=== PATIENT | male | born 1990 | race Caucasian/White ===

== ENCOUNTER → 2016-07-22 | Outpatient (CLI) | payer MEDICAID ==
--- NOTE | 2016-07-22 12:18 | REP ---
MRI lumbar spine without contrast: History: Low back pain. Left-sided sciatica. Comparison radiographs May 16, 2016. Technique: Sagittal and axial T1 and T2-weighted scans are acquired in the usual fashion with and without fat saturation. Sequences include spin echo, turbo spin-echo, and STIR imaging sequences. MRI findings: Cortical and medullary bone signal intensity are normal. There is slight straightening of the normal lumbar lordosis. Vertebral body heights are preserved. There is decreased disc space height and signal intensity at the L5- S1 disc level consistent with some early degenerative disc disease at this level. Otherwise, disc spaces are preserved in height and signal intensity. Axial and sagittal images at L5-S1 demonstrate a left posterior disc protrusion at L5-S1 effacing the ventral margin of the thecal sac and compressing the exiting S1 root sleeve. There is minimal facet hypertrophy at L5-S1. No other disc herniation is seen. No central canal stenosis is noted. Conus medullaris is normal in position and appearance at L1. No extra vertebral abnormality is seen. Impression: Left posterior small disc herniation compressing the exiting S1 root. Mild bilateral L5-S1 facet hypertrophy. Early degenerative disc changes at L5-S1. Signed by Daniel Rivera MD 07/22/2016 02:06 P
== END ==
LOC: M RAD 10:14
PROVIDERS: ATTEND Family Medicine
DX: M54.42 Lumbago with sciatica, left side (principal); M51.36 Other intervertebral disc degeneration, lumbar region

== ENCOUNTER → 2017-01-30 | Outpatient (REF) | payer MEDICAID ==
[2017-01-30 16:49] LABS: ALBUMIN 4.3 GM/DL (3.2-5.2); ALBUMIN/GLOBULIN RATIO 1.72 (1.00-1.93); ALKALINE PHOSPHATASE 79 U/L (45-117); ALT/SGPT 39 U/L (12-78); ANION GAP 6 MEQ/L (8-16); AST/SGOT 17 U/L (15-37); BILIRUBIN,TOTAL 1.4 MG/DL (0.2-1.0); BLOOD UREA NITROGEN 13 MG/DL (7-18); CALCIUM LEVEL 8.8 MG/DL (8.5-10.1); CARBON DIOXIDE LEVEL 30 MEQ/L (21-32); CHLORIDE LEVEL 105 MEQ/L (98-107); CHOLESTEROL LEVEL 131 MG/DL (<200); CREATININE FOR GFR 0.78 MG/DL (0.70-1.30); FREE T4 1.26 NG/DL (0.76-1.46); GLOMERULAR FILTRATION RATE > 60.0 (>60); GLUCOSE, FASTING 87 MG/DL (70-105); SODIUM LEVEL 141 MEQ/L (136-145); TOTAL PROTEIN 6.8 GM/DL (6.4-8.2); TRIGLYCERIDES LEVEL 90 MG/DL (<150)
[2017-02-02 00:07] LABS: Lyme Disease IgG/IgM Antibodie <0.91 ISR (0.00-0.90); Lyme Disease IgM Ab Quantitati <0.80 index (0.00-0.79)
== END ==
LOC: M SFHCLERA 12:15
PROVIDERS: ATTEND Family Medicine
DX: R10.84 Generalized abdominal pain (principal); Z13.220 Encounter for screening for lipoid disorders

== ENCOUNTER → 2017-02-08 | Outpatient (REF) | payer MEDICAID ==
[2017-02-08 12:42] LABS: MEAN CORPUSCULAR HEMOGLOBIN 32.1 pg (27.0-33.0); MEAN CORPUSCULAR HGB CONC 33.9 g/dl (32.0-36.5); MEAN CORPUSCULAR VOLUME 94.5 fl (80.0-96.0); RED CELL DISTRIBUTION WIDTH 12.3 % (11.5-14.5); WHITE BLOOD COUNT 5.1 K/mm3 (4.0-10.0)
[2017-02-08 12:58] LABS: ALBUMIN 4.4 GM/DL (3.2-5.2); ALBUMIN/GLOBULIN RATIO 1.76 (1.00-1.93); BILIRUBIN,DIRECT 0.3 MG/DL (0.0-0.2); TOTAL PROTEIN 6.9 GM/DL (6.4-8.2)
== END ==
LOC: M SFHCLERA 10:23
PROVIDERS: ATTEND Family Medicine
DX: R17 Unspecified jaundice (principal)

== ENCOUNTER → 2018-05-17 | Outpatient (REF) | payer OTHER | LOC: M SFHCLERA 16:24 | DX: J40 Bronchitis, not specified as acute or chronic (principal) ==

== ENCOUNTER → 2019-04-02 | Outpatient (CLI) | payer BC, MEDICAID ==
--- NOTE | 2019-04-03 02:32 | REP ---
Clinical: Pain centered at the first metacarpophalangeal joint Technique: AP, lateral, bilateral oblique views left hand . Findings: No significant degenerative changes are appreciated. No acute fracture or dislocation. No subcutaneous emphysema or radiodense foreign body. Impression: Essentially normal, age-appropriate left hand radiographs. Electronically Signed by Juan Luis Dalal MD 04/03/2019 02:23 A
== END ==
LOC: M LRY 10:33
PROVIDERS: ATTEND Family Medicine
DX: S63.642A Sprain of metacarpophalangeal joint of left thumb, initial encounter (principal); X58.XXXA Exposure to other specified factors, initial encounter; Y92.89 Other specified places as the place of occurrence of the external cause

== ENCOUNTER → 2019-07-07 | Outpatient (REF) | payer BC, MEDICAID | LOC: M SFHCLERA 14:26 | PROVIDERS: ATTEND Family Medicine | DX: J02.9 Acute pharyngitis, unspecified (principal) ==

== ENCOUNTER → 2019-09-25 | Outpatient (REF) | payer BC, MEDICAID | LOC: M SFHCLERA 14:01 | PROVIDERS: ATTEND Nurse Practitioner Family | DX: R53.81 Other malaise (principal) ==

== ENCOUNTER → 2020-06-23 | Outpatient (CLI) | payer SELFPAY | LOC: M LABSMTC 13:50 | PROVIDERS: ATTEND Pediatrics | DX: Z11.59 Encounter for screening for other viral diseases (principal) ==

== ENCOUNTER → 2020-08-12 | Outpatient (CLI) | payer BC | LOC: M LABSMTC 13:41 | PROVIDERS: ATTEND Family Medicine | DX: Z20.822 Contact with and (suspected) exposure to COVID-19 (principal) | CPT/HCPCS: C9803; U0003 ==

== ENCOUNTER → 2020-08-13 | Outpatient (CLI) | payer BC ==
[2020-08-13 15:56] LABS: BASO # 0.1 10^3/uL (0.0-0.2); BASO % 1.3 % (0.0-1.0); EOS # 0.1 10^3/uL (0.0-0.5); EOS % 2.5 % (0.0-3.0); HEMATOCRIT 52.6 % (42.0-52.0); HEMOGLOBIN 17.2 g/dl (13.5-17.5); LYMPH # 1.9 10^3/uL (1.5-5.0); LYMPH % 33.7 % (24.0-44.0); MEAN CORPUSCULAR HEMOGLOBIN 30.9 pg (27.0-33.0); MEAN CORPUSCULAR HGB CONC 32.7 g/dl (32.0-36.5); MEAN CORPUSCULAR VOLUME 94.4 fl (80.0-96.0); MONO # 0.5 10^3/uL (0.0-0.8); MONO % 8.5 % (0.0-5.0); NEUTROPHILS % 53.6 % (36.0-66.0); PLATELET COUNT, AUTOMATED 197 10^3/uL (150-450); RED BLOOD COUNT 5.57 10^6/uL (4.30-6.10); WHITE BLOOD COUNT 5.5 10^3/uL (4.0-10.0)
[2020-08-13 16:17] LABS: ALBUMIN 4.3 GM/DL (3.2-5.2); ALT/SGPT 27 U/L (12-78); BILIRUBIN,TOTAL 0.9 MG/DL (0.2-1.0); BLOOD UREA NITROGEN 12 MG/DL (7-18); CALCIUM LEVEL 9.2 MG/DL (8.5-10.1); CARBON DIOXIDE LEVEL 31 MEQ/L (21-32); CHLORIDE LEVEL 103 MEQ/L (98-107); CREATININE FOR GFR 0.96 MG/DL (0.70-1.30); GLOMERULAR FILTRATION RATE > 60.0 (>60); GLUCOSE, FASTING 99 MG/DL (70-100); POTASSIUM SERUM 4.2 MEQ/L (3.5-5.1); SODIUM LEVEL 141 MEQ/L (136-145); TOTAL PROTEIN 6.6 GM/DL (6.4-8.2)
[2020-08-13 16:29] LABS: ERYTHROCYTE SEDIMENTATION RATE 1 mm/hr (0-15)
--- NOTE | 2020-08-13 19:01 | REP ---
INDICATION: BUNION. COMPARISON: None. TECHNIQUE: AP and lateral views of the left foot. FINDINGS: AP and lateral views of the left foot demonstrate irregularity at the proximal 5th metatarsal tarsal articulation question old posttraumatic change. There appears to be a large accessory ossicle. Changes are chronic. Bones, joints and soft tissues are otherwise unremarkable.. No acute fracture is seen.. No opaque foreign body noted. 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 No acute bony abnormality.. <Electronically signed by Jhon Rivera > 08/13/20 [id number]
== END ==
LOC: M WUC 11:27
PROVIDERS: ATTEND Family Medicine
DX: R19.7 Diarrhea, unspecified (principal); M21.612 Bunion of left foot; Z87.828 Personal history of other (healed) physical injury and trauma

== ENCOUNTER → 2021-06-16 | Outpatient (CLI) | payer BC, MEDICAID ==
[~2021-06-16] MED LIST: AUGM875T28 PO; CETI-24 PO; GABA-282 PO; LOSA50TA28 PO; TRAM50TA2 PO
== END ==
LOC: M LABSMTC 11:06
PROVIDERS: ATTEND Pediatrics
DX: Z11.52 Encounter for screening for COVID-19 (principal)

== ENCOUNTER → 2021-07-06 | Outpatient (REF) | payer BC, MEDICAID | LOC: M SFHCPLAZ 13:07 | PROVIDERS: ATTEND Physician Assistant | DX: R09.89 Other specified symptoms and signs involving the circulatory and respiratory systems (principal); Z11.52 Encounter for screening for COVID-19 ==

== ENCOUNTER 2021-08-11 19:40 | Emergency (ER) | payer BC, MEDICAID ==
[~2021-08-11] VITALS: Ht 177.8 cm; Wt 104.5 kg
[2021-08-11] MEDS ORDERED: GABA-282 PO (19:54)
[2021-08-11] MEDS ORDERED: CETI-24 PO (19:54)
[2021-08-11] MEDS ORDERED: LOSA50TA28 PO (19:54)
[2021-08-11] MEDS ORDERED: NORCO, ANEXSIA 5/325MG TABLET (HYDROcodone/ACETAMINOPHEN) PO ONE (21:55)
[2021-08-11] MEDS ORDERED: AUGMENTIN 875 MG TAB PO ONE (21:55)
[2021-08-11] MEDS ORDERED: BOOSTRIX/ADACEL VACCINE (DIPHTH/PERTUSS/ACELL/TETANUS) 0.5ML SYR IM ONE (21:55)
[2021-08-11] MEDS ORDERED: LIDOCAINE 1% MDV 20ML VIAL SC ONE (21:55)
[2021-08-11] MEDS ORDERED: AUGM875T28 PO (22:44)
[2021-08-11 23:04] VITALS: BP 131/69
[2021-08-12] MEDS ORDERED: UNRESOLVED CLARIFICATION ENTRY XX SCH (00:01)
[2021-08-12] MEDS ORDERED: TRAM50TA2 PO (04:20)
== END 2021-08-11 23:09 | disposition home or self-care (01) ==
LOC: M ED 19:40
DX: S51.852A Open bite of left forearm, initial encounter (principal); S51.812A Laceration without foreign body of left forearm, initial encounter; W54.0XXA Bitten by dog, initial encounter; Y92.009 Unspecified place in unspecified non-institutional (private) residence as the place of occurrence of the external cause; Y93.89 Activity, other specified; Y99.8 Other external cause status; Z79.899 Other long term (current) drug therapy

== ENCOUNTER → 2021-08-19 | Outpatient (REF) | payer BC | LOC: M SFHCLERA 15:36 | PROVIDERS: ATTEND Student in an Organized Health Care Education/Training Program | DX: J00 Acute nasopharyngitis [common cold] (principal) ==

== ENCOUNTER → 2021-11-02 | Outpatient (CLI) | payer BC, MEDICAID | LOC: M PLAIMG 14:48 | PROVIDERS: ATTEND Physician Assistant | DX: R06.02 Shortness of breath (principal) ==

== ENCOUNTER → 2021-11-21 | Outpatient (CLI) | payer BC, MEDICAID ==
[2021-11-21 18:15] LABS: BASO % 0.2 % (0.0-1.0); EOS % 0.1 % (0.0-3.0); HEMATOCRIT 49.3 % (42.0-52.0); HEMOGLOBIN 16.6 g/dl (13.5-17.5); LYMPH # 1.1 10^3/uL (1.5-5.0); LYMPH % 13.5 % (24.0-44.0); MEAN CORPUSCULAR HEMOGLOBIN 31.1 pg (27.0-33.0); MEAN CORPUSCULAR HGB CONC 33.7 g/dl (32.0-36.5); MEAN CORPUSCULAR VOLUME 92.3 fl (80.0-96.0); MONO # 0.3 10^3/uL (0.0-0.8); MONO % 3.5 % (2.0-8.0); NEUTROPHILS # 6.8 10^3/uL (1.5-8.5); NEUTROPHILS % 81.7 % (36.0-66.0); PLATELET COUNT, AUTOMATED 233 10^3/uL (150-450); RED BLOOD COUNT 5.34 10^6/uL (4.30-6.10); WHITE BLOOD COUNT 8.4 10^3/uL (4.0-10.0)
[2021-11-21 18:46] LABS: ALT/SGPT 28 U/L (12-78); BILIRUBIN,TOTAL 0.7 MG/DL (0.2-1.0); BLOOD UREA NITROGEN 15 MG/DL (7-18); CALCIUM LEVEL 9.9 MG/DL (8.5-10.1); CARBON DIOXIDE LEVEL 32 MEQ/L (21-32); CHLORIDE LEVEL 104 MEQ/L (98-107); CREATININE FOR GFR 0.88 MG/DL (0.70-1.30); FREE T4 1.21 NG/DL (0.76-1.46); GLOMERULAR FILTRATION RATE > 60.0 (>60); GLUCOSE, FASTING 129 MG/DL (70-100); POTASSIUM SERUM 4.7 MEQ/L (3.5-5.1); SODIUM LEVEL 141 MEQ/L (136-145); THYROID STIMULATING HORMONE 0.222 uIU/ML (0.358-3.740); TOTAL PROTEIN 6.7 GM/DL (6.4-8.2)
== END ==
LOC: M RAD 16:51
PROVIDERS: ATTEND Student in an Organized Health Care Education/Training Program
DX: U07.1 COVID-19 (principal)

== ENCOUNTER 2022-05-01 06:35 | Emergency (ER) | payer BC, MEDICAID ==
[~2022-05-01] VITALS: Ht 177.8 cm; Wt 121.0 kg
[2022-05-01 06:37] VITALS: BP 134/72
[2022-05-01] MEDS ORDERED: MUCI600T31 PO (08:24)
[2022-05-01] MEDS ORDERED: HYDR-4465 PO (08:24)
[2022-05-01] MEDS ORDERED: OLOP2.5D12 OP (08:24)
[2022-05-01] MEDS ORDERED: GUAI1SOL7 PO (10:05)
== END 2022-05-01 08:42 | disposition home or self-care (01) ==
LOC: M ED 06:35
DX: J06.9 Acute upper respiratory infection, unspecified (principal); B30.9 Viral conjunctivitis, unspecified; Z88.8 Allergy status to other drugs, medicaments and biological substances; Z79.899 Other long term (current) drug therapy

== ENCOUNTER → 2022-06-20 | Outpatient (REF) | payer BC, MEDICAID ==
[~2022-06-20] MED LIST changes: +GUAI1SOL7 PO; +HYDR-4465 PO; +MUCI600T31 PO; +OLOP2.5D12 OP
== END ==
LOC: M SFHCLERA 16:59
PROVIDERS: ATTEND Family Medicine
DX: Z20.822 Contact with and (suspected) exposure to COVID-19 (principal)

== ENCOUNTER → 2022-10-13 | Outpatient (REF) | payer MEDICAID | LOC: M SFHCPLAZ 15:07 | PROVIDERS: ATTEND Physician Assistant | DX: R07.0 Pain in throat (principal) ==

== ENCOUNTER → 2023-08-31 | Outpatient (CLI) | payer OTHER ==
[~2023-08-31] MED LIST changes: +METHACHOLINE KIT INH ONE
== END ==
LOC: M CARPUL 09:42
PROVIDERS: ATTEND Physician Assistant
DX: R06.00 Dyspnea, unspecified (principal)
CPT/HCPCS: 94070; 95070; J7674

== ENCOUNTER → 2023-10-24 | Outpatient (CLI) | payer MEDICAID, OTHER ==
[~2023-10-24] MED LIST changes: -METHACHOLINE KIT INH ONE
[2023-10-24 10:36] LABS: BASO # 0.1 10^3/uL (0.0-0.2); BASO % 0.8 % (0.0-1.0); EOS # 0.2 10^3/uL (0.0-0.5); EOS % 2.5 % (0.0-3.0); HEMATOCRIT 48.3 % (42.0-52.0); HEMOGLOBIN 16.4 g/dl (13.5-17.5); LYMPH # 2.1 10^3/uL (1.5-5.0); MEAN CORPUSCULAR HEMOGLOBIN 31.6 pg (27.0-33.0); MEAN CORPUSCULAR VOLUME 93.1 fl (80.0-96.0); MONO # 0.6 10^3/uL (0.0-0.8); MONO % 9.3 % (2.0-8.0); NEUTROPHILS # 3.2 10^3/uL (1.5-8.5); NEUTROPHILS % 51.9 % (36.0-66.0); PLATELET COUNT, AUTOMATED 188 10^3/uL (150-450); RED BLOOD COUNT 5.19 10^6/uL (4.30-6.10); WHITE BLOOD COUNT 6.1 10^3/uL (4.0-10.0)
[2023-10-24 10:56] LABS: HEMOGLOBIN A1c 5.3 % (4.0-6.0)
[2023-10-24 11:07] LABS: CORTISOL AM 15.2 UG/DL (4.3-22.4)
[2023-10-24 11:10] LABS: ALKALINE PHOSPHATASE 76 U/L (46-116); ALT/SGPT 28 U/L (7.0-40); AST/SGOT 14 U/L (<34); BILIRUBIN,TOTAL 0.8 MG/DL (0.3-1.2); BLOOD UREA NITROGEN 15 MG/DL (9-23); CALCIUM LEVEL 9.1 MG/DL (8.5-10.1); CARBON DIOXIDE LEVEL 30 MMOL/L (20-31); CHLORIDE LEVEL 106 MMOL/L (98-107); CHOLESTEROL LEVEL 147 MG/DL (<200); CHOLESTEROL RISK RATIO 2.47 (<5); CREATININE FOR GFR 0.78 MG/DL (0.70-1.30); GLOMERULAR FILTRATION RATE > 60.0 (>60); GLUCOSE, FASTING 113 MG/DL (60-100); HDL CHOLESTEROL 59.3 MG/DL (>40); LDL CHOLESTEROL 71.7 MG/DL (<100); NON-HDL-C 87.7 MG/DL; POTASSIUM SERUM 3.9 MMOL/L (3.5-5.1); SODIUM LEVEL 142 MMOL/L (136-145); TOTAL PROTEIN 6.3 G/DL (5.7-8.2); TRIGLYCERIDES LEVEL 80 MG/DL (<150)
[2023-10-24 11:12] LABS: FREE T4 1.52 NG/DL (0.89-1.76); THYROID STIMULATING HORMONE 1.966 uIU/ML (0.55-4.78)
== END ==
LOC: M PLALAB 07:51
PROVIDERS: ATTEND Family Medicine
DX: E66.01 Morbid (severe) obesity due to excess calories (principal)

== ENCOUNTER → 2023-11-27 | Outpatient (CLI) | payer OTHER | LOC: M PLALAB 09:25 | PROVIDERS: ATTEND Family Medicine | DX: R53.83 Other fatigue (principal) ==

== ENCOUNTER → 2024-04-01 | Outpatient (REF) | payer OTHER, MEDICAID | LOC: M SFHCLERA 17:30 | PROVIDERS: ATTEND Physician Assistant | DX: R30.0 Dysuria (principal) ==

== ENCOUNTER → 2024-06-10 | Outpatient (CLI) | payer OTHER, MEDICAID ==
[~2024-06-10] MED LIST changes: +GABA-1172 PO; -GABA-282 PO
[2024-06-10 11:37] LABS: FOLLICLE STIMULATING HORMONE 5.4 mIU/ML (1.4-18.1)
[2024-06-10 11:38] LABS: LUTEINIZING HORMONE 3.6 mIU/ML (1.5-9.3)
== END ==
LOC: M WUC 08:58
PROVIDERS: ATTEND Nurse Practitioner Family
DX: N52.9 Male erectile dysfunction, unspecified (principal)

== ENCOUNTER → 2025-03-18 | Outpatient (CLI) | payer OTHER, MEDICAID | LOC: M RAD 17:04 | PROVIDERS: ATTEND Family Medicine | DX: M54.50 Low back pain, unspecified (principal) ==

== ENCOUNTER 2025-04-10 09:04 | Outpatient (RCR) | payer OTHER | END 2025-04-14 | LOC: M PT 09:04 | PROVIDERS: ATTEND Family Medicine | DX: M54.50 Low back pain, unspecified (principal) ==

== ENCOUNTER 2025-05-08 12:35 | Outpatient (RCR) | payer OTHER | END 2025-05-15 | LOC: M PT 12:35 | PROVIDERS: ATTEND Family Medicine | DX: M54.50 Low back pain, unspecified (principal) ==

== ENCOUNTER 2025-05-28 12:00 | Outpatient (RCR) | payer OTHER | END 2025-06-14 | LOC: M PT 12:00 | PROVIDERS: ATTEND Family Medicine | DX: M54.50 Low back pain, unspecified (principal) ==